=== PATIENT | male | born 1950 | race Caucasian/White ===

== ENCOUNTER 2020-04-02 22:39 | Inpatient (IN) | payer MEDICARE, OTHER ==
[~2020-04-02] VITALS: Ht 195.6 cm; Wt 77.1 kg
[2020-04-03 07:32] LABS: HEMOGLOBIN 14.5 gm/dl (14.0-17.5); RED BLOOD COUNT 4.67 M/UL (4.20-5.50); WHITE BLOOD COUNT 10.4 K/UL (4.5-11.0)
[2020-04-03 07:54] LABS: BUN/CREATININE RATIO 25 (0-10)
[2020-04-03] MEDS ORDERED: LIPITOR20 MG PO (10:47)
[2020-04-03] MEDS ORDERED: HYDROCODON-ACE1 EAC2 PO (10:47)
[2020-04-03] MEDS ORDERED: PLAVIX 75 MG TA75 MG PO (10:48)
[2020-04-03] MEDS ORDERED: IMDUR ER TAB 6060 MG PO (10:48)
[2020-04-03] MEDS ORDERED: HYDRALAZINE HCL25 MG PO (10:50)
[2020-04-03] MEDS ORDERED: BREZTRI AEROS10.7 GM INH (10:52)
[2020-04-04 03:33] LABS: HEMOGLOBIN 15.7 gm/dl (14.0-17.5); RED BLOOD COUNT 4.98 M/UL (4.20-5.50); WHITE BLOOD COUNT 10.8 K/UL (4.5-11.0)
[2020-04-04 04:05] LABS: BUN/CREATININE RATIO 22 (0-10)
[2020-04-04] MEDS ORDERED: ASPIRIN EC81 MG PO (19:34)
[2020-04-04] MEDS ORDERED: LOPRESSOR 25 MG25 MG PO (19:34)
[2020-04-04] MEDS ORDERED: ENOXAPARIN80 MG/0.8 SC (19:34)
--- NOTE | 2020-04-08 01:10 | NUR ---
REPORT CALLED TO [facility] TO [facility] AT 22:00 ON 04/07/20 PATIENT TRANSPORTED VIA EMS TO [facility] AT 2315 VITALS WERE 142/72 (90), HR 55, RR 16 AT TIME OF TRANSFER
== END 2020-04-07 23:15 | disposition short-term general hospital (02) | DRG 300 ==
LOC: CCU 04-03 01:07 → PROG CARE 04-03 01:07 → CCU 04-03 01:07 → PROG CARE 04-03 15:43
PROVIDERS: Family Medicine; ADMIT Internal Medicine
PROC: B24BZZZ Ultrasonography of Heart with Aorta (ICD-10-PCS; principal; 2020-04-03)
DX: I71.4 Abdominal aortic aneurysm, without rupture (principal); I48.92 Unspecified atrial flutter; I50.20 Unspecified systolic (congestive) heart failure; N17.9 Acute kidney failure, unspecified; I13.0 Hypertensive heart and chronic kidney disease with heart failure and stage 1 through stage 4 chronic kidney disease, or unspecified chronic kidney disease; I11.0 Hypertensive heart disease with heart failure; R55 Syncope and collapse; I48.91 Unspecified atrial fibrillation; F17.210 Nicotine dependence, cigarettes, uncomplicated; I73.89 Other specified peripheral vascular diseases; J44.9 Chronic obstructive pulmonary disease, unspecified; I73.9 Peripheral vascular disease, unspecified; E78.5 Hyperlipidemia, unspecified; Z95.828 Presence of other vascular implants and grafts; Z95.5 Presence of coronary angioplasty implant and graft; N18.9 Chronic kidney disease, unspecified
CPT/HCPCS: ECHO; 36415; 75635; 76706; 80048; 80053; 80061; 82550; 82553; 83735; 84439; 84443; 84484; 85025; 87040; 93005; 93306; 94640; 94760; J0360; J1650; J7030; Q9967